=== PATIENT | female | born 1970 | race Caucasian/White ===

== ENCOUNTER → 2017-10-18 | Outpatient (CLI) | payer OTHER ==
[~2017-10-18] MED LIST: AZITHROMYCIN 2250 MG PO; CYMBALTA60 MG PO; NORCO 5-325 TA1 EACH PO; ZOFRAN4 MG PO
== END ==
LOC: RAD 00:29
DX: Z12.31 Encounter for screening mammogram for malignant neoplasm of breast (principal)